=== PATIENT | female | born 1990 ===

== ENCOUNTER 2017-04-20 11:24 | Inpatient (IN) | payer MEDICAID, SELFPAY ==
[2017-04-20 12:19] VITALS: BMI 23.6
[2017-04-20] MEDS ORDERED: Oxytocin 30 UNITS in Sodium Chloride 0.9% 500 ML IV SCH (12:30)
[2017-04-20] MEDS ORDERED: Lactated Ringer's 1,000 ML IV SCH ×2 (12:30→15:00)
--- NOTE | 2017-04-20 12:51 | OBHP ---
Datetime: 04/20/2017 12:37 IP Adm Impression: Term, intrauterine ; No Active Labor; Ruptured Membranes IP Admit Plan: Admit to unit; Initiate labor protocol Admit Comment, IP Provider: 26yo with IUP at 39.1wks reports to the LND c/o sudden episode of l OF for the past 1 hour. She denies any VB and reports good movements. Also reports mild pelvic pressure and pains. PNC with the [facility], [place], operated by [facility] and course has been uncomplica paramjit. TOCO- Q 5, FHR- 150s, Category 1 , Speculum exams: Gross pooling, Nitrazine +ve. Cx- 2-3/60/-2, Vt x presentation. Assessment: IUP at 39wks with SROM Early Labor. Plan: Admit to D Initiate labor protocol. Pitocin for augmentation of labor. Epidural anesthesia Presentation-Admit: Vertex FHR - Baseline A Provider: 150 Amniotic Fluid Color, Provider: Clear Membranes, Provider: Ruptured Contraction Comments Provider: Q 5 Comments, ACOG Physical Exam: Abd: Soft, NT, BS- present Gestation - Est Wks by US: 39.1 Pool Provider: Positive Nitrazine Provider: Positive EGA AdmitDate IP: 39.1 Vital Signs Provider: Reviewed IP Chief Complaint: Uterine contractions; Suspected ruptured membranes; Maternal discomfort NICHD Variability Prov Fetus A: Moderate 6-25bpm NICHD Accel Fetus A IP Provider: 15X15 FHR Category Provider Fetus A: Category I NICHD Decel Fetus A IP Provider: None Dilatation, Provider: 2-3 Effacement, Provider: 60 Station, Provider: -2
[2017-04-20 13:34] LABS: BASO % 0.2 % (0.0-2.0); EOS % 0.3 % (0.0-4.0); HEMOGLOBIN 11.4 g/dL (12.0-16.0); MEAN CELL VOLUME 83.4 fl (81.0-99.0); MEAN CORPUSCULAR HEMOGLOBIN 27.9 pg (27.0-31.0); MEAN CORPUSCULAR HGB CONC 33.5 g/dL (33.0-37.0); MEAN PLATELET VOLUME 10.5 fl (7.2-11.7); MONO # 0.8 K/uL (0.0-0.8); MONO % 7.2 % (0.0-10.0); NEUT # 6.6 K/uL (1.8-7.0); NEUT % 63.3 % (50.0-75.0); RBC 4.08 Mil/uL (3.80-5.20); RED CELL DISTRIBUTION WIDTH 15.3 % (11.5-14.5); WHITE BLOOD COUNT 10.4 K/uL (4.8-10.8)
[2017-04-20 13:48] LABS: ALT/SGPT 45 U/L (9-52); AST/SGOT 23 U/L (14-36); BLOOD UREA NITROGEN 9 mg/dl (7-17); GFR AFRICAN-AMERICAN > 60; GFR NON-AFRICAN AMERICAN > 60
--- NOTE | 2017-04-20 14:47 | OBPN ---
Datetime: 04/20/2017 14:37 IP Progress Impression: Normal progression of labor; Rupture of membranes IP Informed Consent Obtain: Vaginal Delivery IP Procedures: Sterile Vag Exam IP Progress Plan: Augmentation; Anticipate Vaginal Delivery Membranes, Provider: Ruptured Contraction Comments Provider: q3-5 FHR - Baseline A Provider: 140 IP Progress Note Comment: Pt reports steady contractions, was sitting on birthing ball. FHR: 140/+accels/moderate variability, loss of contact due to wireless monitor and patient m oving on birthball toco: q3-5min SVE: 3-4/80/-2, cephalic, ruptured A/P: 39w1d admitted for SROM in latent labor, start augmentation -patient to be placed on continuous monitoring on bed -start pitocin for augmentation -IVF -analgesia per pt request, hold off on epidural, anesthesia aware -GBS neg -pelvis adequate, cephalic, anticipate Klarissa Castillo MD Vital Signs Provider: Reviewed; Within Normal Limits NICHD Accel Fetus A IP Provider: 15X15 FHR Category Provider Fetus A: Category I NICHD Variability Prov Fetus A: Moderate 6-25bpm Dilatation, Provider: 3-4 Effacement, Provider: 80 Station, Provider: -2 NICHD Decel Fetus A IP Provider: None Datetime: 04/20/2017 12:37 Pool Provider: Positive Nitrazine Provider: Positive Amniotic Fluid Color, Provider: Clear Gestation - Est Wks by US: 39.1 Presentation-Admit: Vertex
[2017-04-20] MEDS ORDERED: Fentanyl/Bupivacaine HCl 250 ML EPI ONE ×2 (16:09→18:18)
[2017-04-20 16:13] LABS: SQUAMOUS EPITHIAL 3 /hpf (0-5); URINE BACTERIA RARE (<OCC); URINE BILIRUBIN NEGATIVE (NEGATIVE); URINE BLOOD NEGATIVE (NEGATIVE); URINE CLARITY SLIGHTY-CLOUDY (Clear); URINE COLOR YELLOW (YELLOW); URINE GLUCOSE (UA) NEG (Normal); URINE LEUKOCYTE ESTERASE NEG Leu/uL (Negative); URINE NITRATE NEGATIVE (NEGATIVE); URINE PROTEIN NEGATIVE (NEGATIVE); URINE UROBILINOGEN 0.2-1.0 mg/dL (0.2-1.0)
[2017-04-20] MEDS ORDERED: Lidocaine 1% Inj (20ml) ONE (17:45)
[2017-04-20] MEDS ORDERED: Oxycodone/Acetaminophen 5/325 mg Tab PO PRN (19:31)
[2017-04-21 08:50] LABS: BASO % 0.1 % (0.0-2.0); EOS % 0.2 % (0.0-4.0); HEMOGLOBIN 10.6 g/dL (12.0-16.0); LYMPH # 3.3 K/uL (1.0-4.3); LYMPH % 23.7 % (20.0-40.0); MEAN CELL VOLUME 82.9 fl (81.0-99.0); MEAN CORPUSCULAR HEMOGLOBIN 28.5 pg (27.0-31.0); MEAN CORPUSCULAR HGB CONC 34.4 g/dL (33.0-37.0); MEAN PLATELET VOLUME 9.7 fl (7.2-11.7); MONO # 0.9 K/uL (0.0-0.8); MONO % 6.4 % (0.0-10.0); NEUT # 9.7 K/uL (1.8-7.0); NEUT % 69.6 % (50.0-75.0); NRBC % 0.1 % (0.0-0.0); RBC 3.74 Mil/uL (3.80-5.20); RED CELL DISTRIBUTION WIDTH 15.5 % (11.5-14.5)
[2017-04-21] MEDS ORDERED: Benzocaine/Menthol SPRAY TOP PRN (19:06)
--- NOTE | 2017-04-21 22:19 | OBPPN ---
Datetime: 04/21/2017 06:40 PP Pain Prov: Within normal limits PP Nausea Prov: Denies PP Flatus Prov: Yes PP BM Prov: No PP Breasts Prov: Not Done PP Heart Prov: Normal PP Lungs Prov: Normal PP Abdomen/Uterus Prov: Normal PP Lochia Prov: Normal PP Vulva/Perineum Prov: Not Done PP CVA Tenderness Prov: Not Done PP Extremities Prov: Normal PP C/S Incision Prov: Not Applicable PP Progress Prov: Normal PP Impression Prov: Normal progression PP Plan Prov: Continue present management PP Progress Note Prov: S: 26 yo s/p NVD. Pt. is seen and examined at bedside this morning. N o overnight events. Pt reports occasional abdominal pain, but well controlled with pain meds. Pt is a mbulating without any difficulties. Breast/bottle feeding baby. Tolerating PO diet. Lochia is similar to light menses in volume. Voiding freely, no BM yet but passing gas per rectum. Denies fever/chills , diarrhea, nausea/vomiting, chest pain, dyspnea, and dizziness. VS: stable GEN: NAD Cardio: s1s2, no m/r/g Resp: clear breath sounds b/l Abdomen: BS+, NT, Uterus is firm and at the level of the umbilicus. EXT: No edema, calves nontender NEURO/PSYCHI: AAOx3, no grossly focal deficit, preserved affect and mood. A/P: 26 s/p NVD. Pt remains afebrile, tolerating pain with medication, doing well on PPD 1. OOB with caution. SCDs for DVT prophylaxis, pt ambulating Ibuprofen 600mg for pain. Colace 100mg PO BID for constipation Encourage . PP CBC: pending Anticipated d/c: 04/22/17 YBecerra PGY 1. Pt was seen and examined with Resident and I agree with the above. IP PP Procedures: None Vital Signs Provider PP: Reviewed
[2017-04-22 07:37] LABS: BASO % 0.2 % (0.0-2.0); EOS # 0.1 K/uL (0.0-0.7); EOS % 0.7 % (0.0-4.0); HEMOGLOBIN 10.6 g/dL (12.0-16.0); LYMPH # 3.9 K/uL (1.0-4.3); LYMPH % 32.4 % (20.0-40.0); MEAN CELL VOLUME 84.5 fl (81.0-99.0); MEAN CORPUSCULAR HEMOGLOBIN 28.3 pg (27.0-31.0); MEAN CORPUSCULAR HGB CONC 33.5 g/dL (33.0-37.0); MEAN PLATELET VOLUME 9.9 fl (7.2-11.7); MONO # 1.1 K/uL (0.0-0.8); MONO % 8.8 % (0.0-10.0); NEUT % 57.9 % (50.0-75.0); NRBC % 0.1 % (0.0-0.0); RBC 3.76 Mil/uL (3.80-5.20); RED CELL DISTRIBUTION WIDTH 15.7 % (11.5-14.5)
--- NOTE | 2017-04-22 09:00 | OBPPN ---
Datetime: 04/22/2017 08:57 PP Pain Prov: Within normal limits PP Nausea Prov: Denies PP Flatus Prov: Yes PP Breasts Prov: Normal PP Heart Prov: Normal PP Lungs Prov: Normal PP Abdomen/Uterus Prov: Normal PP Lochia Prov: Normal PP Vulva/Perineum Prov: Normal PP CVA Tenderness Prov: Normal PP Extremities Prov: Normal PP Comments Phys Exam Prov: Abd: Soft, NT, BS- present UT- Firm Calves: No tenderness b/l PP Impression Prov: Normal progression PP Plan Prov: Discharge PP Progress Note Prov: S/P , PPD#2, Clinically Stable Plan: D/c Home. F/U with Dr Salazar. Vital Signs Provider PP: Reviewed
--- NOTE | 2017-04-22 09:02 | OBDCSUM ---
Datetime: 04/22/2017 07:54 Discharged to, Provider: Home Follow up at, Provider: [facility] with Dr. Ariza Disch Instr Activity: Normal activity Disch Instr Diet: Regular Discharge Instructions, Provider: Routine instructions given Discharge Diagnosis, Provider: Term Delivered Discharge Time: 04/22/2017 09:00 Follow up in weeks, Provider: 4 to 6 weeks Disch Referrals: None Contraception discussed, Prov: Yes Discharge Comment, Provider: PPD2 This is 26 yo s/p NVD of healthy FT female NB on 04/20/17. Patient seen and examined at [facility] this morning, patient denies any acute event overnight. Pt reports improved abdominal pain, and sta ludmila may not use pain medications anymore. Pt is ambulating without any difficulties. Breast feeding b carmine. Tolerating PO diet. Lochia is similar to light menses in volume. Voiding freely, no BM yet but p assing gas per rectum. Denies fever/chills, diarrhea, nausea/vomiting, chest pain, dyspnea, and dizzi ness. Patient states is doing well and denies any issue with breast feeding. VS: stable GEN: NAD Cardio: s1s2, no m/r/g Resp: clear breath sounds b/l Abdomen: BS+, NT, Uterus is firm and below the umbilicus. EXT: No edema, calves nontender NEURO/PSYCHI: AAOx3, no grossly focal deficit, preserved affect and mood. A/P: 26 s/p NVD of healthy female NB on 04/20/17. Pt remains afebrile, tolerating pain with m edication, doing well on PPD2. -encouraged -Ambulate as tolerated -Ibuprofen for pain PRN, Rx given -f/u PMD, for NB visit in 2-3 days and PP visit in 4 to 6 weeks -ER precautions discussed with patient(incase of fever, bleeding, dizziness, headache, mood change s, chest/abdominal pain or SOB) -Patient agrees with discharge plan Case discussed with Dr. Matt --- Frankie Ya, PGY-1
[2017-04-22 17:28] VITALS: BP 93/56; PULSE 75; RESP 20; TEMP 98; O2SAT 98
== END 2017-04-22 13:10 | disposition home or self-care (01) | DRG 775 ==
LOC: H.EROB2 11:24 → H.L&D 12:06 → H.EROB2 12:22 → H.L&D 12:23 → H.OB/GYN 22:10
PROVIDERS: ADMIT Obstetrics & Gynecology; ATTEND Obstetrics & Gynecology
PROC: 10E0XZZ Delivery of Products of Conception, External Approach (ICD-10-PCS; principal; 2017-04-20)
PROC: 0KQM0ZZ Repair Perineum Muscle, Open Approach (ICD-10-PCS; 2017-04-20)
PROC: 4A1HXCZ Monitoring of Products of Conception, Cardiac Rate, External Approach (ICD-10-PCS; 2017-04-20)
DX: O70.1 Second degree perineal laceration during delivery (principal); Z37.0 Single live birth; K59.00 Constipation, unspecified; Z3A.39 39 weeks gestation of pregnancy